=== PATIENT | male | born 1990 | race Caucasian/White ===

== ENCOUNTER 2018-06-22 07:23 | Day surgery (SDC) | payer OTHER, SELFPAY ==
[2018-06-20 14:54] VITALS: BMI 30.2
[2018-06-22] VITALS (12 sets, daily range): BP systolic 86–122; BP diastolic 62–78; PULSE 52–89; RESP 12–19; TEMP 36.1–36.9; O2SAT 93–98; BMI 30.2
--- NOTE | 2018-06-22 | DI.RAD.S_ITS ---
PROCEDURE: XR SHOULDER RT 1V INDICATIONS: POST OPERATIVE SHOULDER SURGERY TECHNIQUE: Single views of the shoulder were acquired. COMPARISON: None. FINDINGS: Bones: No fractures or dislocations. No suspicious bony lesions. Visualized ribs appear intact. Postsurgical changes in glenoid are seen with radiolucencies. Soft tissues: No suspicious soft tissue calcifications. IMPRESSION: Post surgical changes in glenoid possibly represent labral repair. No shoulder fracture or dislocation. Dictated by: Ace Sanchez M.D. on 06/22/2018 at 13:40 Approved by: Ace Sanchez M.D. on 06/22/2018 at 13:47
--- NOTE | 2018-06-22 09:29 | SUR.PREOP ---
Block start time [921] . Monitoring initiated and maintained throughout procedure. Oxygen and medications given per anesthesiologist instructions. Patient remained stable throughout procedure, no adverse reactions noted. Block end time []926 .
[2018-06-22] MEDS: LACTATED RINGERS 1,000 ML 42 ML IV ×2 (09:37→12:10)
[2018-06-22] MEDS: CEFTRIAXONE 2 GM/50 ML FROZ.PIGGY IV (09:50)
--- NOTE | 2018-06-22 10:31 | PM.PROC.1 ---
Procedures Date/Time Date of procedure: 06/22/18 Time of procedure: 09:15 General Procedure description: Ultrasound guided interscalene brachial plexus nerve block for post op pain control after right shoulder sugery by Dr. Knowles. Risks and benefits of procedure discussed with patient. ASA monitoring applied to patient. O2 given via nasal cannula. 2 mg Versed and 50 mcg fentanyl given for procedural sedation. Skin site was prepped with chlorhexidine and allowed to fully dry. Sterile gloves, mask, hat and probe cover were used to maintain sterility. 2% lidocaine and 30ga needle was used to make a small skin wheal at needle insertion site. Under ultrasound guidance, a 21ga 50mm Pajunk needle was directed into the interscalene groove (middle/anterior scalenes) near the brachial plexus at C5-6 level. Patient reported no parasthesias. After negative aspiration, 20 mL 0.5% ropivicaine and 10mg dexamethasone were injected around brachial plexus. Patient tolerated procedure well.
--- NOTE | 2018-06-22 10:33 | SUR.OPER ---
Lateral on padded OR bed with dunn bag positioner, head on pillow, gel axillary roll in place, bottom leg bent with gel pad under knee to foot, upper leg straight and supported with pillows. Operative arm secured in shoulder positioning suspension device. non-operative arm secured on padded arm board. Safety belt at hip, tape over blanket securing lower legs.
[2018-06-22] MEDS: BUPIVACAINE 0.25% (PF) VIAL 30 ML INJ (10:42)
[2018-06-22] MEDS: SODIUM CHLORIDE IRRIG SOLUTION 3,000 ML, EPINEPHrine 1 MG IRR (10:44)
--- NOTE | 2018-06-22 13:09 | PM.OP.1 ---
Operative Date/Time/Diagnoses Date of procedure: 06/22/18 Time of procedure: 10:09 Pre-op diagnosis: Right shoulder labral tear Right shoulder biceps tendonitis Post-op diagnosis: same Procedure & Clinicians Procedure: Right shoulder arthroscopy with 200 degree labral repair Mini open subpectoral biceps tenodesis Same procedure as scheduled: Yes Indications: 28-year-old male has remote history of an anterior shoulder dislocation while wrestling in high school and recovered relatively well until December 2017. Approximately 5 months ago he sustained a posterior instability episode while doing press. He continued to have posterior pain with mild generalized laxity and apprehension. He additionally had symptoms consistent with biceps tendinitis and potentially a subscapularis tear. Risks, benefits, alternatives to surgery were discussed. The risks include pain, bleeding, infection, damage to nearby structures, lack of symptom relief, need for further procedures, implant complications, stiffness, recurrent instability. Written consent was obtained. Surgeon: Avelino Knowles Roving Department End Finder: Td Jauregui Click Yes if Unassisted: No Anesthesia Type: General and Local Operative Notes Findings: Examination under anesthesia showed grade 2 laxity posterior and sulcus sign inferiorly. There was grade 1 anterior laxity. Range of motion is full. Diagnostic arthroscopy: Biceps tendon had a type 2 slap tear and the medial sling was disrupted. Subscapularis insertion showed a longitudinal tear with synovium covering it yet the insertion was intact and there was good tension. A there was an anterior inferior and posterior labral tear with a small healed bony component. There was additionally a G lad lesion inferiorly. The glenoid had mild grade 1 changes. Humeral head was intact. The superior rotator cuff was intact. There were no hagl lesions. Closure Type: primary Specimen(s): none sent Implants & Drains: Arthrex knotless suturtak x6 Arthrex fibertak x1 Estimated Blood Loss (mL): 20 Blood products transfused: none Procedure in detail: The patient was met in the preoperative hold area on the day of the procedure and the operative extremity was signed. Consent was verified. He desired to proceed. A regional nerve block was performed for postoperative pain. He was then transitioned to the operative room and general anesthesia was obtained. He was then placed in lateral position with the right side up utilizing a beanbag. An axillary roll was placed and all bony prominences were well padded. Examination under anesthesia was performed with the findings as above. It was then prepped and draped in the standard sterile fashion. Surgical time-out was held compressed the patient procedure, identified, allergies, images. All were in agreement we proceeded The arm was placed into balanced suspension utilizing 11 lb of traction. A standard diagnostic arthroscopy was performed utilizing a posterior portal and anterior superior portal. Anterior superior portal was created under direct visualization utilizing a switching stick and dilating. The findings of the diagnostic arthroscopy can be found above. I used a sucker shaver to bleed debride synovial tissue that was overlying the subscapularis insertion to better assess its stability. I continued to probe the subscapularis using a posterior shift technique and found the insertion to be intact. The medial border of the biceps sling and the SLAP tear was seen and the decision was made to take the biceps tendon. I used a straight biter and took it at the labral junction. The stump was then debrided with sucker shaver. A mid glenoid portal was then created just lateral to the coracoid under direct visualization. I then used a straight grasper to take a nearly loose body that was attached to the glenoid articular surface at the inferior border and pulled it from the cannula. I then used the elevator from the front and back to elevate the labrum from the bone from the 2:30 o'clock position anteriorly to the 10 o'clock position posteriorly. The medial band of the anterior glenohumeral ligament remained intact and my preparation and it just inferior to that. A rasp was placed into the interval and the bone was rasped to a bed of bleeding bone. I then ensured that the labrum was freed all the way around and removed the inflow and watched the labrum Float above the glenoid surface. A sucker shaver was used in the interval between the glenoid and the labrum to remove any loose tissue. I then used a percutaneous technique to place a 7 o'clock portal. I began my repair with a 6 o'clock anchor through the percutaneous portal and utilizing a knotless technique I performed a capsular shift. This suture was tightened and the tissue was then probed and found to be stable. The suture was then cut flush. I then proceeded up the posterior side and placed an additional anchor every 5-7 mm a stopping at the 10 o'clock position. There a total of 4 anchors from 6:00 to 10:00. I then moved the camera to the posterior portal and worked up the anterior side placing anchors at the 430 and 3:00 position. The tissue anteriorly was also shifted with a knotless technique. I was very satisfied with the capsular shift and the bumper that had been recreated. I then released the lateral tension on the arm and the humeral head was centered on the glenoid. The arm was then removed out of balance suspension. I then externally rotated the arm slightly and created a 4 cm incision centered over the inferior aspect of the Del Rosario major tendon. Scissor dissection was brought down through the fascia. Digital dissection was then brought down and identified the long head of the biceps tendon in the bicipital groove just under the Del Rosario major tendon. A right angle was used to deliver the tendon out of the incision. I then used a Munoz elevator to debride the synovial tissue from bicipital groove. I then drilled for the suture Rosendo high in the groove and attempted to place the anchor. However, the ankle was found to be not be well fixed and a small portion of the medical facilities section director handle had broken. This was then removed from the wound. I then placed a suture tack high in the groove and it was very well fixed. I then measured the tendon 2 cm from the musculotendinous junction and whip stitched with 1 of the ends of the suture anchor. I then placed the other and through the tendon 1 time and pulled on this and reducing it into groove. I felt the reduction and it was very well placed. I then tied 7 knots on top of this and cut the sutures with tails. A flat plate was then brought in an x-ray was taken showing no radio-opaque metal material. This was done to ensure that the piece had broken did not break into more than 2 pieces. Satisfied with this, we irrigated the wounds copiously and closed the biceps with 2 O Vicryl deep in the dermis and a running Monocryl in the skin. The arthroscopy incisions were closed with buried Monocryl. 20 cc of 0.25% Marcaine were instilled about the wounds and Steri-Strips with a sterile dressing was applied. The arm was placed into a sling and the patient was awakened and transferred to the recovery room. Complications: none Condition: stable Disposition: same day surgery Plan for aftercare: Sling with bump for 6 weeks. Total sling time of 12 weeks 0-2 weeks: pendulum exercises 2-6 weeks: passive ROM to 90 degrees ff and 90 degrees abduction. No internal rotation when forward flexed 6-12 weeks: active ROM in all planes without limitations 12-16 weeks: gradual strengthening 16 weeks: Gradually introduce dynamic exercise 5-6 months: anticipate full activity
--- NOTE | 2018-06-22 14:16 | SUR.PHASEII ---
Assumed care over of Pt approximately 15 minutes ago. Pt c/o R shoulder pain as very minimal 11/08, block remains effective, and ice pack remains on R arm. Ride home has been called, Pt will be ready for d/c home soon. IV d/c'd, cannula intact, Pt has tolerated fluids without nausea, Pt has pain medications at home and his post op appointment has been made. Pt resting comfortably in bed at this time.
== END 2018-06-22 15:19 | disposition home or self-care (01) ==
PROVIDERS: Visit Provider Orthopaedic Surgery
PROC: (CPT 29805; principal; 2018-06-22 09:15)
DX: S43.491A Other sprain of right shoulder joint, initial encounter (principal); M75.21 Bicipital tendinitis, right shoulder; S46.011A Strain of muscle(s) and tendon(s) of the rotator cuff of right shoulder, initial encounter; G89.18 Other acute postprocedural pain; Y93.72 Activity, wrestling
CPT/HCPCS: 23430; 29807; 64415; 64450; 73020; J0171; J0696; J1100; J2250; J2405; J2704; J2795; J3010